=== PATIENT | female | born 1945 | race Caucasian/White ===

== ENCOUNTER 2021-04-08 16:13 | Emergency (ER) | payer MEDICARE ==
[~2021-04-08] VITALS: Ht 165.1 cm; Wt 70.9 kg
[2021-04-08 16:34] VITALS: BP 154/83
== END 2021-04-08 19:51 | disposition left against medical advice (07) ==
LOC: ER 16:14
DX: S81.811A Laceration without foreign body, right lower leg, initial encounter (principal); Z53.21 Procedure and treatment not carried out due to patient leaving prior to being seen by health care provider; X58.XXXA Exposure to other specified factors, initial encounter; Y93.89 Activity, other specified; Y92.89 Other specified places as the place of occurrence of the external cause; Y99.8 Other external cause status

== ENCOUNTER 2023-02-10 12:59 | Day surgery (SDC) | payer MEDICARE, BC ==
[2023-02-05 13:34] LABS: BASOPHILS # (AUTO) 0.1 X10'3 (0-0.2); EOSINOPHILS # (AUTO) 0.1 X10'3 (0-0.9); EOSINOPHILS % (AUTO) 2.4 % (0-6); HEMATOCRIT 46.5 % (35.0-45.0); HEMOGLOBIN 15.5 g/dl (12.0-16.0); LYMPHOCYTES # (AUTO) 1.4 X10'3 (1.1-4.8); MEAN CORPUSCULAR HEMOGLOBIN 32.6 PG (27.0-31.0); MEAN CORPUSCULAR HGB CONC 33.4 g/dL (33.0-36.5); MEAN CORPUSCULAR VOLUME 97.5 FL (78-98); MEAN PLATELET VOLUME 6.7 FL (7.4-10.4); MONOCYTES # (AUTO) 0.5 X10'3 (0-0.9); MONOCYTES % (AUTO) 8.7 % (2-12); NEUTROPHILS % (AUTO) 64.9 % (42-75); PLATELET COUNT 222 X10'3 (140-440); RED BLOOD COUNT 4.77 X10'6 (4.20-5.60); RED CELL DISTRIBUTION WIDTH 15.1 % (11.5-14.5); WHITE BLOOD COUNT 6.2 X10'3 (4.5-11.0)
[2023-02-05 13:49] LABS: APTT 35 SECONDS (22-32)
[2023-02-05 14:08] LABS: ALBUMIN 4.3 G/DL (3.4-5.0); ANION GAP 14 (8-16); BLOOD UREA NITROGEN 13 MG/DL (7-18); BUN/CREATININE RATIO 11.8 (10.0-20.0); CALCIUM 9.4 MG/DL (8.5-10.1); CHLORIDE 104 MMOL/L (99-107); GLUCOSE 99 MG/DL (70-104); POTASSIUM 4.1 MMOL/L (3.5-5.1); SODIUM 140 MMOL/L (135-145); TOTAL CARBON DIOXIDE 22.4 MMOL/L (24-32); eGFR 48 ML/MIN
[2023-02-10] VITALS (7 sets, daily range): BP systolic 125–158; BP diastolic 75–99; PULSE 75–96; RESP 16; TEMP 98.1; O2SAT 91–98
[~2023-02-10] VITALS: Ht 165.1 cm; Wt 67.9 kg
[2023-02-10] MEDS ORDERED: MV-M1TAB19 PO (13:20)
[2023-02-10] MEDS ORDERED: NAPR220C62 PO (13:20)
[2023-02-10] MEDS ORDERED: APIX5TAB3 PO (13:20)
[2023-02-10] MEDS ORDERED: TELM40TA8 PO (13:20)
[2023-02-10] MEDS ORDERED: ROSU10TA28 PO (13:20)
[2023-02-10] MEDS ORDERED: normal saline 1000ml 1,000 ML IV SCH (13:20)
[2023-02-10] MEDS ORDERED: MIDAZolam 1mg/ml 10ml vial IV ONE (13:20)
[2023-02-10] MEDS ORDERED: fentaNYL/PF 50MCG/1 ML 2ML syringe IV ONE (13:20)
[2023-02-10] MEDS ORDERED: DILT-91 PO (13:20)
[2023-02-10] MEDS ORDERED: ROSU20TA73 PO (13:20)
[2023-02-10] MEDS ORDERED: DRON400T6 PO (13:20)
== END 2023-02-10 14:55 | disposition home or self-care (01) ==
LOC: SSTAY O 12:59
PROVIDERS: ATTEND Student in an Organized Health Care Education/Training Program
DX: I48.0 Paroxysmal atrial fibrillation (principal); I25.10 Atherosclerotic heart disease of native coronary artery without angina pectoris; I10 Essential (primary) hypertension; E78.5 Hyperlipidemia, unspecified; I42.9 Cardiomyopathy, unspecified; I65.29 Occlusion and stenosis of unspecified carotid artery; Z95.5 Presence of coronary angioplasty implant and graft; Z88.2 Allergy status to sulfonamides; Z88.5 Allergy status to narcotic agent; Z88.8 Allergy status to other drugs, medicaments and biological substances; Z79.899 Other long term (current) drug therapy; Z79.01 Long term (current) use of anticoagulants
CPT/HCPCS: 36415; 80048; 85025; 85610; 85730; 92960; 93005; J2250; J3010; J7030; A4620